=== PATIENT | female | born 1960 | race Caucasian/White ===

== ENCOUNTER 2017-02-14 19:55 | Observation (INO) | payer OTHER ==
--- NOTE | ~2017-02-14 | HP ---
History And Physical [id number] [place]. [address] NAME: ALEXANDRA KELLY : 64 STATUS : ADM Bill PAT#: [id number] AGE: 56 ADM/REG DATE : 02/14/17 MR#: [id number] REPORT SERV DATE: 02/15/17 DICTATED BY: JUANY SCHREIBER DATE: 02/15/17 REPORT STATUS : Draft TRANSCRIBED BY: STIVEN DATE: 02/15/17 DATE OF ADMISSION: 02/14/2017 CHIEF COMPLAINT: Chest pain. HISTORY OF PRESENT ILLNESS: This is a 56-year-old female with no prior history of coronary artery disease, but cardiovascular risk factors of hypertension, hyperlipidemia, and family history for premature cardiovascular disease, who states onset of chest pain early Wednesday morning. 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 The pain seems sharper with a deep breath. She was also feeling tired and nauseated. She took a Zantac as she had a history of hiatal hernia and gastroesophageal reflux disease. She states nothing made it feel better. She does report having chronic chest pains, but she attributes these to her hiatal hernia and this pain was different. She states throughout the day on Wednesday, the pain in her chest was intermittent, but even when it would resolve, it still felt "uncomfortable." It seemed worse with activity. It was a 7/10 in intensity at its worst. She came to the emergency department last evening around 7:30 and later that evening, received some nitroglycerin paste which seemed to ease the chest pain. She also received 1 dose of sublingual through the night. She states the chest pain is currently a 3/10 in intensity. There was no accompanying shortness of breath. The patient denies any recent fever, cough, or chills. She denies orthopnea, PND, or any presyncope. She does have chronic mild lower extremity edema. She has a history of a negative stress test approximately five years ago when it was discovered that she had the hiatal hernia. MEDICAL HISTORY: 1. Hypertension. 2. Hyperlipidemia. 3. GERD. 4. Hiatal hernia. 5. Depression. 6. Macular degeneration to the left, currently undergoing injections. 7. Morbid obesity with a BMI of 42. SURGICAL HISTORY: Hysterectomy. HOME MEDICATIONS: Hydrochlorothiazide 12.5 daily, Prilosec 20 b.i.d., aspirin 81 daily, fish oil and coenzyme Q10 supplements as well as multivitamins. ALLERGIES: NO KNOWN DRUG ALLERGIES, BUT PATIENT DOES HAVE STATIN INTOLERANCE WITH MYALGIAS. 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 She works various shifts. She has never smoked. Denies alcohol or illicit drug use. No structured exercise program. History And Physical [address] [id number] NAME: ALEXANDRA KELLY : 64 STATUS : ADM Bill PAT#: [id number] AGE: 56 ADM/REG DATE : 02/14/17 MR#: [id number] REPORT SERV DATE: 02/15/17 DICTATED BY: JUANY SCHREIBER DATE: 02/15/17 REPORT STATUS : Draft TRANSCRIBED BY: STIVEN DATE: 02/15/17 FAMILY HISTORY: Mother suffered SD at age 50 and also got a pacemaker at that time, at 72. Father of an SD at age 70. Brother with SD at age 53, still living at age 55. REVIEW OF SYSTEMS: Negative except as indicated above. PHYSICAL EXAMINATION: VITAL SIGNS: Blood pressure 150/80, heart rate 50s, temperature 97.7, pulse oximetry 98% room air. BMI 42.8. GENERAL: Well developed, well nourished, in no acute distress. HEENT: Anicteric. Normal EOM. Head normocephalic. PERRLA, no xanthelasma. NECK: Supple. No JVD. Carotids normal without bruits. LUNGS: Clear to auscultation bilaterally anterior and posterior. Respirations even and unlabored. CARDIAC: S1, S2 regular rate and rhythm. No murmurs, rubs, or gallops. No chest wall tenderness. ABDOMEN: Normal bowel sounds. Soft and nontender to palpation. No masses or organomegaly. EXTREMITIES: 1+ edema to the bilateral lower extremities. No cyanosis or clubbing. 2+ pedal and radial pulses bilaterally. SKIN: Warm and dry. Normal turgor. No pallor or cyanosis. MUSCULOSKELETAL: Moving all extremities x4. Normal muscle strength. NEURO/PSYCH: Alert and oriented with appropriate affect. LABORATORY DATA: White blood count 6.1; hemoglobin 13.2; hematocrit 39.4. D-dimer 0.31. Sodium 142; potassium 3.8; BUN 16; creatinine 0.7. Troponin less than 0.02 x2. Chest x-ray shows no acute cardiopulmonary processes. EKGs interpreted myself indicates sinus bradycardia, normal sinus rhythm, and no ischemic changes. ASSESSMENT AND PLAN: 1. Substernal chest pain in this 56-year-old female with cardiovascular risk factors of hypertension, hyperlipidemia, and a family history of premature cardiovascular disease. She has been observed overnight in the Chest Pain Observation Unit and is negative for acute coronary syndrome. Recommend proceeding with a cardiac PET stress test today given her BMI of 42. This is low risk, we will plan to discharge her home with followup with her primary care physician. If any indication of ischemia on cardiac PET, we will plan to proceed with cardiac catheterization. 2. Hypertension. Blood pressure was elevated in the emergency department at 198/91. We will continue to monitor. The patient may need an increase in her HCTZ or add another antihypertensive agent. 3. Mixed hyperlipidemia with history of statin intolerance. The patient is taking fish oil supplements. 4. Obesity with a BMI of 42. I have counseled the patient on weight loss and dietary changes as well as exercise. 5. Family history for premature cardiovascular disease. History And Physical [address] [id number] NAME: ALEXANDRA KELLY : 64 STATUS : ADM Bill PAT#: [id number] AGE: 56 ADM/REG DATE : 02/14/17 MR#: [id number] REPORT SERV DATE: 02/15/17 DICTATED BY: JUANY SCHREIBER DATE: 02/15/17 REPORT STATUS : Draft TRANSCRIBED BY: MODAshok DATE: 02/15/17 NIKOLAY/STIVEN Juany Schreiber NP / [id number] CC: Addie Tamayo, MSN, [employer]S SAL[employer] Melvin Barillas M.D.
[2017-02-14 20:29] LABS: BASOPHILS 0.3 %; BASOPHILS ABSOLUTE 0.02 10/3/uL (0.0-0.16); EOSINOPHILS 3.6 %; EOSINOPHILS ABSOLUTE 0.22 10/3/uL (0.0-0.53); ER CBC TAT 0 Hrs 00 Mins; HEMATOCRIT 39.4 % (36.0-48.0); HEMOGLOBIN 13.2 g/dL (12.0-16.0); IMMATURE GRANULOCYTES 0.2 %; IMMATURE GRANULOCYTES ABSOLUTE 0.01 10/3/uL (0.0-0.11); LYMPHOCYTES 42.7 %; LYMPHOCYTES ABSOLUTE 2.59 10/3/uL (0.67-4.30); MEAN CORPUS HGB CONC 33.5 g/dL (32.0-36.0); MEAN CORPUSCULAR HEMOGLOB 30.3 pg (26.0-34.0); MEAN CORPUSCULAR VOLUME 90.4 fL (80-100); MONOCYTES 4.6 %; MONOCYTES ABSOLUTE 0.28 10/3/uL (0.21-1.20); NEUTROPHILS 48.6 %; NEUTROPHILS ABSOLUTE 2.94 10/3/uL (2.02-8.40); PLATELET COUNT 202 10/3/uL (150-400); RBC DISTRIBUTION WIDTH 13.7 % (12.0-16.0); RED CELL COUNT 4.36 10/6/uL (4.0-5.6); WHITE BLOOD CELLS 6.1 10/3/uL (4.5-10.5)
[2017-02-14 20:31] LABS: MANUAL DIFF NO %
[2017-02-14 20:38] LABS: PARTIAL THROMBO TIME 28.7 SEC (22.5-37.2); PROTIME (NOT ORD) 13.4 SEC (12.0-14.5)
[2017-02-14 20:46] LABS: BUN (BLOOD UREA NITROGEN) 16 MG/DL (6-23); CALCIUM, SERUM 8.9 MG/DL (8.5-10.4); CHEST PAIN PROFILE TAT 0 Hrs 00 Mins; CHLORIDE, SERUM 107 MMOL/L (96-112); CO2 (CARBON DIOXIDE) 31 MMOL/L (24-34); CREATININE 0.77 MG/DL (0.55-1.02); GFR AFRICAN AMERICAN 101 ML/MIN (>=60); GFR NON AFRICAN AMERICAN 88 ML/MIN (>=60); GLUCOSE, SERUM 95 MG/DL (60-99); POTASSIUM, SERUM 3.8 MMOL/L (3.5-5.3); SODIUM, SERUM 142 MMOL/L (135-148); TROPONIN I <0.02 NG/ML (<0.05)
[2017-02-15 00:10] LABS: D-DIMER QUANTITATIVE 0.31 ug/mLFEU (< 0.50)
[2017-02-15] MEDS ORDERED: HYDROCHLOROT12.5 MG PO ×2 (11:02→11:15)
[2017-02-15] MEDS ORDERED: CO Q-10100 MG PO ×2 (11:03→11:17)
[2017-02-15] MEDS ORDERED: FISH-EPA1000 MG PO ×2 (11:03→11:16)
[2017-02-15] MEDS ORDERED: RED YEAS1 PO (11:04)
[2017-02-15] MEDS ORDERED: PRILOSEC OTC20 MG PO (11:04)
[2017-02-15] MEDS ORDERED: AVASTIN IJ (11:07)
[2017-02-15] MEDS ORDERED: MULTIPLE VIT PO (11:07)
[2017-02-15] MEDS ORDERED: PRILO PO (11:16)
[2017-02-15] MEDS ORDERED: MULTIVITAMI1 PO (11:17)
[2017-02-15] MEDS ORDERED: ASAB PO (11:18)
[2017-02-15] MEDS ORDERED: ZANTAC 75 PO (11:18)
[2017-02-15] MEDS ORDERED: AVASTIN (11:19)
[2017-02-15] MEDS ORDERED: LIQUID TEARS OPH (11:20)
[2017-02-15] MEDS ORDERED: KLOR-CON 1010 MEQ PO (16:23)
[2017-02-15] MEDS ORDERED: HYDROCHLOROT25 MG PO (16:23)
== END 2017-02-15 16:42 | disposition home or self-care (01) ==
LOC: ER 19:55 → CDU1 23:59
PROVIDERS: Hospitalist
DX: R07.2 Precordial pain (principal); I10 Essential (primary) hypertension; E78.5 Hyperlipidemia, unspecified; E78.00 Pure hypercholesterolemia, unspecified; K21.9 Gastro-esophageal reflux disease without esophagitis; F32.9 Major depressive disorder, single episode, unspecified; E66.01 Morbid (severe) obesity due to excess calories; Z90.710 Acquired absence of both cervix and uterus; Z79.82 Long term (current) use of aspirin; Z79.899 Other long term (current) drug therapy; Z88.8 Allergy status to other drugs, medicaments and biological substances; Z68.41 Body mass index [BMI] 40.0-44.9, adult
CPT/HCPCS: 71020; 78492; 80048; 83735; 84484; 85025; 85379; 85610; 85730; 93005; 93017; 99285; A9270-GY; A9555; G0378; J2785